=== PATIENT | male | born 2000 | race Caucasian/White ===

== ENCOUNTER 2024-11-20 19:09 | Emergency (ER) | payer OTHER ==
[~2024-11-20] VITALS: Ht 182.9 cm; Wt 95.3 kg
[2024-11-20] MEDS ORDERED: IBUPROFEN 600 MG TABLET ONE (19:46)
[2024-11-20] MEDS: IBUPROFEN 600 MG TABLET PO ONE (19:48)
[2024-11-20 19:50] VITALS: BP 110/61; TEMP 99.1
[2024-11-20] MEDS ORDERED: IBUP-1953 PO (19:50)
[2024-11-20] MEDS ORDERED: BENZ-13 PO (19:50)
[2024-11-20] MEDS ORDERED: PSEU120T99 PO (19:50)
[2024-11-20 19:55] VITALS: O2SAT 97
== END 2024-11-20 19:59 | disposition home or self-care (01) ==
LOC: ER 19:13
DX: J06.9 Acute upper respiratory infection, unspecified (principal); B97.89 Other viral agents as the cause of diseases classified elsewhere; R05.9 Cough, unspecified; Z60.2 Problems related to living alone; Z20.822 Contact with and (suspected) exposure to COVID-19